=== PATIENT | male | born 1990 | race Caucasian/White ===

== ENCOUNTER 2019-04-08 14:56 | Emergency (ER) | payer SELFPAY ==
[~2019-04-08] VITALS: Ht 170.2 cm; Wt 77.6 kg
[2019-04-08 15:03] VITALS: BP 118/69
[2019-04-08 15:35] LABS: APPEARANCE,URINE Clear (CLEAR); BILIRUBIN,URINE Negative (NEGATIVE); BLOOD, URINE Negative Ery/uL (NEGATIVE); COLOR,URINE Yellow (YELLOW); KETONES,URINE Negative (NEGATIVE); LEUKOCYTE ESTERASE ,URINE Negative (NEGATIVE); NITRITE, URINE Negative (NEGATIVE); PROTEIN,URINE Negative (NEGATIVE); UGLUCOSE Negative (NEGATIVE); UROBILINOGEN,URINE 0.2 EU/dL (0.2)
== END 2019-04-08 16:08 | disposition home or self-care (01) ==
LOC: ER 14:57
DX: N41.9 Inflammatory disease of prostate, unspecified (principal)
CPT/HCPCS: 81000-TC; 87086-TC